=== PATIENT | male | born 1995 | race Caucasian/White ===

== ENCOUNTER 2024-09-12 22:55 | Emergency (ER) | payer OTHER ==
[~2024-09-12] VITALS: Ht 190.5 cm; Wt 63.6 kg
[2024-09-12 23:05] VITALS: TEMP 98.5
[2024-09-13] MEDS: LORazepam 1 MG TABLET PO ONE (01:03)
[2024-09-13] MEDS: IBUPROFEN 600 MG TABLET PO ONE (01:03)
[2024-09-13] MEDS: METHOCARBAMOL 500 MG TABLET PO ONE (01:04)
[2024-09-13 01:30] LABS: COVID AG,FIA SOURCE NASAL SWAB
[2024-09-13 01:34] LABS: BASOPHILS % (AUTO) 0.7 % (0.0-2.0); HEMATOCRIT 44.4 % (41-53); HEMOGLOBIN 15.3 g/dL (13.5-17.5); LYMPHOCYTES # (AUTO) 5.4 K/uL (1.0-4.8); MEAN CORPUSCULAR HEMOGLOBIN 32.6 pg (26.0-34.0); MEAN CORPUSCULAR HGB CONC 34.4 G/dL (31.0-37.0); MEAN CORPUSCULAR VOLUME 95 fL (80-100); MONOCYTES # (AUTO) 0.7 K/uL (0.1-1.0); MONOCYTES % (AUTO) 6.9 % (2.0-9.0); NEUTROPHILS # (AUTO) 4.4 K/uL (1.8-7.7); NEUTROPHILS % (AUTO) 41.4 % (40.0-70.0); PLATELET COUNT (AUTO) 389 K/uL (150-450); RED BLOOD CELL COUNT(AUTO) 4.69 MIL/uL (4.50-5.90); RED CELL DISTRIBUTION WIDTH 12.8 % (11.5-14.5); WHITE BLOOD COUNT (AUTO) 10.7 K/uL (4.5-11.0)
[2024-09-13 01:39] LABS: SARS-COV2 (COVID) ANTIGEN,FIA Negative (Negative)
[2024-09-13 01:39] LABS: ANION GAP 8 mmol/L (8-16); CALCIUM, TOTAL 8.9 mg/dL (8.8-10.5); CARBON DIOXIDE 32 mmol/L (22-29); CHLORIDE 98 mmol/L (98-107); CREATININE 1.24 mg/dL (0.60-1.30); GLOMERULAR FILTR. RATE CALC > 60 mL/min (>60); GLUCOSE,RANDOM 85 mg/dL (70-110); POTASSIUM 3.6 mmol/L (3.5-5.1); SODIUM SERUM 138 mmol/L (136-145); UREA NITROGEN, BLOOD 15 mg/dL (7-18)
[2024-09-13 01:45] LABS: ALCOHOL, BLOOD (SERUM) < 3 mg/dL (0-10)
[2024-09-13 03:00] VITALS: BP 129/85; PULSE 87; RESP 18; O2SAT 99
== END 2024-09-13 03:23 | disposition home or self-care (01) ==
LOC: EMS 22:55
DX: S39.012A Strain of muscle, fascia and tendon of lower back, initial encounter (principal); F22 Delusional disorders; F31.9 Bipolar disorder, unspecified; F41.9 Anxiety disorder, unspecified; G43.909 Migraine, unspecified, not intractable, without status migrainosus; F12.90 Cannabis use, unspecified, uncomplicated; Z20.822 Contact with and (suspected) exposure to COVID-19; X58.XXXA Exposure to other specified factors, initial encounter; Y93.89 Activity, other specified; Y92.89 Other specified places as the place of occurrence of the external cause; Y99.8 Other external cause status
CPT/HCPCS: 99284; 87426; 80048; 85025; 36415; G0480